=== PATIENT | female | born 1985 | race Caucasian/White ===

== ENCOUNTER 2017-06-23 07:32 | Emergency (ER) | payer MEDICAID ==
[~2017-06-23] VITALS: Ht 157.5 cm; Wt 87.5 kg
[~2017-06-23 07:32] MED LIST: IBUP-1985 PO
[2017-06-23 08:25] LABS: URINE HCG NEGATIVE (NEG)
[2017-06-23 08:26] LABS: CLARITY,URINE Clear (Clear); COLOR,URINE Yellow (Yellow); GLUCOSE, URINE Negative (Neg); KETONES,URINE Negative (Neg); LEUKOCYTE ESTERASE ,URINE Negative (Neg); NITRITES, URINE Negative (Neg); OCCULT BLOOD,URINE Negative (Neg); PROTEIN,URINE Negative (Neg); UROBILINOGEN,URINE 0.2 E.U/dL (0.2-1.0)
[2017-06-23] MEDS ORDERED: LORazepam 1 MG tablet PO ONE (08:35)
[2017-06-23 08:37] LABS: UA COLLECTION TYPE CLN CATCH MIDSTREAM
[2017-06-23 08:56] VITALS: BP 101/62
== END 2017-06-23 08:55 | disposition home or self-care (01) ==
LOC: ER 07:32
DX: R07.9 Chest pain, unspecified (principal); E78.00 Pure hypercholesterolemia, unspecified
CPT/HCPCS: 71045; 81003; 81025; 93005; 99285

== ENCOUNTER 2021-10-09 23:31 | Emergency (ER) | payer MEDICAID ==
[~2021-10-09] VITALS: Ht 157.5 cm; Wt 88.6 kg
[2021-10-10 02:19] LABS: BASOPHILS % (AUTO) 0.5 % (0-1); EOSINOPHILS # (AUTO) 0.1 X10'3 (0-0.9); EOSINOPHILS % (AUTO) 2.6 % (0-6); HEMATOCRIT 41.2 % (35.0-45.0); HEMOGLOBIN 13.9 g/dl (12.0-16.0); LYMPHOCYTES # (AUTO) 2.5 X10'3 (1.1-4.8); LYMPHOCYTES % (AUTO) 43.3 % (21-51); MEAN CORPUSCULAR HEMOGLOBIN 30.5 PG (27.0-31.0); MEAN CORPUSCULAR HGB CONC 33.9 g/dL (33.0-36.5); MEAN PLATELET VOLUME 7.6 FL (7.4-10.4); MONOCYTES # (AUTO) 0.5 X10'3 (0-0.9); NEUTROPHILS # (AUTO) 2.6 X10'3 (1.8-7.7); NEUTROPHILS % (AUTO) 44.6 % (42-75); PLATELET COUNT 226 X10'3 (140-440); RED BLOOD COUNT 4.58 X10'6 (4.20-5.60); RED CELL DISTRIBUTION WIDTH 13.1 % (11.5-14.5); WHITE BLOOD COUNT 5.7 X10'3 (4.5-11.0)
[2021-10-10 02:30] LABS: ALANINE AMINOTRANSFERASE 37 U/L (12-78); ALBUMIN 3.6 G/DL (3.4-5.0); ALBUMIN/GLOBULIN RATIO 1.1 (1.1-1.5); ALKALINE PHOSPHATASE 72 IU/L (46-116); ANION GAP 12 (8-16); ASPARTATE AMINO TRANSFERASE 20 U/L (10-37); BILIRUBIN,TOTAL 0.2 MG/DL (0.1-1.0); BLOOD UREA NITROGEN 15 MG/DL (7-18); BUN/CREATININE RATIO 19.5 (6.6-38.0); CALCIUM 8.7 MG/DL (8.5-10.1); CHLORIDE 108 MMOL/L (99-107); CREATININE 0.77 MG/DL (0.40-0.90); GLUCOSE 112 MG/DL (70-104); POTASSIUM 3.9 MMOL/L (3.5-5.1); SODIUM 143 MMOL/L (135-145); TOTAL CARBON DIOXIDE 23.3 MMOL/L (24-32); TOTAL PROTEIN 6.9 G/DL (6.4-8.2); eGFR 86 ML/MIN
[2021-10-10 02:38] LABS: HCG SERUM QL NEGATIVE
[2021-10-10] MEDS ORDERED: ketorolac trometh inj. 60 MG/2 ML VIAL IM ONE (03:05)
[2021-10-10 03:54] VITALS: BP 140/84
[2021-10-11] MEDS ORDERED: HYDR-3972 PO (07:44)
[2021-10-11] MEDS ORDERED: ORPH100T2 PO (07:44)
== END 2021-10-10 03:54 | disposition home or self-care (01) ==
LOC: ER 23:32
DX: M54.6 Pain in thoracic spine (principal); M79.601 Pain in right arm; M79.10 Myalgia, unspecified site; E78.00 Pure hypercholesterolemia, unspecified; F41.9 Anxiety disorder, unspecified; Z79.899 Other long term (current) drug therapy
CPT/HCPCS: 36415; 73030; 80053; 84703; 85025; 93971; 96372; 99285; J1885; 99283

== ENCOUNTER 2021-10-11 02:12 | Emergency (ER) | payer MEDICAID ==
[~2021-10-11] VITALS: Ht 157.5 cm; Wt 84.1 kg
[2021-10-11 02:26] VITALS: BP 144/99
[2021-10-11] MEDS ORDERED: ORPH100T2 PO (07:44)
[2021-10-11] MEDS ORDERED: HYDR-3972 PO (07:44)
[2021-10-11] MEDS ORDERED: orphenadrine citrate 60mg/2ml inj. IM ONE (08:00)
--- NOTE | 2021-10-11 08:15 | NUR ---
DC INSTRUCTIONS GIVEN TO PATIENT. PATIENT STATES SHE WOULD LIKE A WORK NOTE FOR [address] RODRIGUEZ AND TYIBTasha NOTIFIED OF PATIENT REQUEST FOR WORK NOTE.
== END 2021-10-11 08:18 | disposition home or self-care (01) ==
LOC: ER 02:12
DX: M54.2 Cervicalgia (principal); M79.89 Other specified soft tissue disorders; M62.838 Other muscle spasm; M25.512 Pain in left shoulder
CPT/HCPCS: 96372; 99283; J2360

== ENCOUNTER 2022-01-16 15:03 | Emergency (ER) | payer MEDICAID ==
[~2022-01-16] VITALS: Ht 157.5 cm; Wt 93.2 kg
[~2022-01-16 15:03] MED LIST changes: +ORPH100T2 PO
[2022-01-16 15:18] VITALS: BP 112/77
[2022-01-16 15:50] LABS: CLARITY,URINE CLEAR (Clear); GLUCOSE, URINE NEGATIVE (Neg); KETONES,URINE NEGATIVE (Neg); LEUKOCYTE ESTERASE ,URINE NEGATIVE (Neg); NITRITES, URINE NEGATIVE (Neg); OCCULT BLOOD,URINE NEGATIVE (Neg); PROTEIN,URINE NEGATIVE (Neg); UROBILINOGEN,URINE 0.2 E.U/dL (0.2-1.0)
[2022-01-16 15:53] LABS: COLOR,URINE STRAW (Yellow); UA COLLECTION TYPE CLN CATCH MIDSTREAM
[2022-01-16 15:54] LABS: URINE HCG NEGATIVE (NEG)
[2022-01-16 16:09] LABS: BASOPHILS % (AUTO) 0.2 % (0-1); EOSINOPHILS # (AUTO) 0.1 X10'3 (0-0.9); EOSINOPHILS % (AUTO) 1.4 % (0-6); HEMATOCRIT 41.3 % (35.0-45.0); HEMOGLOBIN 13.9 g/dl (12.0-16.0); LYMPHOCYTES # (AUTO) 2.5 X10'3 (1.1-4.8); LYMPHOCYTES % (AUTO) 31.2 % (21-51); MEAN CORPUSCULAR HEMOGLOBIN 29.8 PG (27.0-31.0); MEAN CORPUSCULAR HGB CONC 33.6 g/dL (33.0-36.5); MEAN CORPUSCULAR VOLUME 88.7 FL (78-98); MEAN PLATELET VOLUME 7.7 FL (7.4-10.4); MONOCYTES # (AUTO) 0.7 X10'3 (0-0.9); MONOCYTES % (AUTO) 8.8 % (2-12); NEUTROPHILS # (AUTO) 4.7 X10'3 (1.8-7.7); NEUTROPHILS % (AUTO) 58.4 % (42-75); PLATELET COUNT 249 X10'3 (140-440); RED BLOOD COUNT 4.66 X10'6 (4.20-5.60); RED CELL DISTRIBUTION WIDTH 13.4 % (11.5-14.5); WHITE BLOOD COUNT 8.1 X10'3 (4.5-11.0)
[2022-01-16 16:22] LABS: ALANINE AMINOTRANSFERASE 45 U/L (12-78); ALBUMIN/GLOBULIN RATIO 1.1 (1.1-1.5); ALKALINE PHOSPHATASE 73 IU/L (46-116); ANION GAP 12 (8-16); ASPARTATE AMINO TRANSFERASE 21 U/L (10-37); BILIRUBIN,TOTAL 0.3 MG/DL (0.1-1.0); BLOOD UREA NITROGEN 14 MG/DL (7-18); CHLORIDE 102 MMOL/L (99-107); CREATININE 0.56 MG/DL (0.40-0.90); GLUCOSE 118 MG/DL (70-104); LIPASE 114 U/L (73-393); POTASSIUM 3.7 MMOL/L (3.5-5.1); SODIUM 137 MMOL/L (135-145); TOTAL CARBON DIOXIDE 23.1 MMOL/L (24-32); TOTAL PROTEIN 7.5 G/DL (6.4-8.2); eGFR > 90 ML/MIN
== END 2022-01-16 21:18 | disposition left against medical advice (07) ==
LOC: ER 15:03
DX: R10.84 Generalized abdominal pain (principal); Z53.21 Procedure and treatment not carried out due to patient leaving prior to being seen by health care provider
CPT/HCPCS: 36415; 80053; 81003; 81025; 83690; 85025

== ENCOUNTER 2022-05-14 05:30 | Day surgery (SDC) | payer MEDICAID ==
[2022-05-11 11:00] LABS: BASOPHILS % (AUTO) 0.2 % (0-1); EOSINOPHILS # (AUTO) 0.1 X10'3 (0-0.9); EOSINOPHILS % (AUTO) 1.8 % (0-6); LYMPHOCYTES # (AUTO) 1.6 X10'3 (1.1-4.8); LYMPHOCYTES % (AUTO) 27.1 % (21-51); MEAN CORPUSCULAR HGB CONC 32.8 g/dL (33.0-36.5); MEAN CORPUSCULAR VOLUME 88.5 FL (78-98); MEAN PLATELET VOLUME 7.5 FL (7.4-10.4); MONOCYTES # (AUTO) 0.4 X10'3 (0-0.9); MONOCYTES % (AUTO) 7.3 % (2-12); NEUTROPHILS # (AUTO) 3.7 X10'3 (1.8-7.7); NEUTROPHILS % (AUTO) 63.6 % (42-75); PRE OP HEMATOCRIT 28.6 % (35.0-45.0); PRE OP PLATELET COUNT 226 X10'3 (140-440); RED BLOOD COUNT 3.23 X10'6 (4.20-5.60); RED CELL DISTRIBUTION WIDTH 13.1 % (11.5-14.5)
[2022-05-11 11:07] LABS: ALBUMIN 4.3 G/DL (3.4-5.0); ALBUMIN/GLOBULIN RATIO 1.4 (1.1-1.5); ALKALINE PHOSPHATASE 79 IU/L (46-116); BLOOD UREA NITROGEN 15 MG/DL (7-18); BUN/CREATININE RATIO 18.8 (6.6-38.0); CALCIUM 8.4 MG/DL (8.5-10.1); CHLORIDE 102 MMOL/L (99-107); PRE OP ALT 78 U/L (30-65); PRE OP ANION GAP 12 (8-16); PRE OP AST 28 U/L (10-37); PRE OP BILIRUB, TOTAL 0.4 MG/DL (0.0-1.0); PRE OP GLUCOSE 110 MG/DL (70-104); PRE OP SODIUM 138 MMOL/L (135-145); TOTAL CARBON DIOXIDE 24.5 MMOL/L (24-32); TOTAL PROTEIN 7.4 G/DL (6.4-8.2); eGFR 82 ML/MIN
[2022-05-11 11:08] LABS: PRE OP HEMOGLOBIN 9.4 g/dL (12.0-16.0)
[2022-05-11 11:39] LABS: HCG SERUM QL NEGATIVE
[2022-05-14] VITALS (9 sets, daily range): BP systolic 100–128; BP diastolic 58–89
[~2022-05-14] VITALS: Ht 157.5 cm; Wt 92.4 kg
[~2022-05-14 05:30] MED LIST changes: -IBUP-1985 PO; +LINE600T14 PO; -ORPH100T2 PO; +ceFAZolin inj. 2,000 MG in dextrose 5%-water 100 ML IV ONE; +famotidine 20mg tablet PO ONE; +ringers solution, lacted 1,000 ML IV SCH
[2022-05-14] MEDS ORDERED: BUPIVAcaine 0.25% w/Epi /PF 30ml vial ONE (06:49)
[2022-05-14] MEDS ORDERED: famotidine 20mg tablet PO ONE (06:55)
[2022-05-14] MEDS ORDERED: sevoflurane 250ml liquid IH ONE (07:22)
[2022-05-14] MEDS ORDERED: hydrALAZINE 20mg/ml inj. IV PRN (07:25)
[2022-05-14] MEDS ORDERED: acetaminophen 1,000mg/100ml IV 100 ML IV PRN (07:25)
[2022-05-14] MEDS ORDERED: ondansetron/PF 4mg/2ml inj IV PRN (07:25)
[2022-05-14] MEDS ORDERED: labetalol 20mg/4ml (5mg/ml) syringe IV PRN (07:25)
[2022-05-14] MEDS ORDERED: morphine 2 MG/ML inj. syringe IV PRN (07:25)
[2022-05-14] MEDS ORDERED: meperidine/PF 25mg/ml syringe IV PRN ×3 (07:25)
[2022-05-14] MEDS ORDERED: ketorolac trometh. 30mg/ml inj. IV ONE (07:25)
[2022-05-14] MEDS ORDERED: morphine 4 MG/ML inj SYRINge IV PRN (07:25)
[2022-05-14] MEDS ORDERED: ringers solution, lacted 1,000 ML IV SCH (07:25)
[2022-05-14] MEDS ORDERED: FENTANYL CITRATE/PF 50 MCG/1 ML VIAL ONE (07:29)
[2022-05-14] MEDS ORDERED: midazolam 1 mg/ML 2ml injection ONE (07:30)
[2022-05-14] MEDS ORDERED: dexamethasone sod phosphate 4mg/ml inj. ONE (07:49)
[2022-05-14] MEDS ORDERED: LIDOcaine 2% (20mg/ml) 5ml vial ONE (07:49)
[2022-05-14] MEDS ORDERED: propofol inj 20 ML IV ONE (07:49)
[2022-05-14] MEDS ORDERED: ondansetron/PF 4mg/2ml inj ONE (07:49)
[2022-05-14] MEDS ORDERED: rocuronium 10mg/ml inj IV ONE (07:49)
[2022-05-14] MEDS ORDERED: ePHEDrine 50MG/ML INJ. ONE (07:50)
[2022-05-14] MEDS ORDERED: BUPIVAcaine HCl 0.25%/EPInephrine 1:200,000 inj. 10 ML VIAL IM ONE (08:08)
[2022-05-14] MEDS ORDERED: neostigmine methylsulfate 1 MG/ML 10ml vial ONE (08:16)
[2022-05-14] MEDS ORDERED: glycopyrrolate 0.2mg/ml inj ONE (08:16)
--- NOTE | 2022-05-14 08:38 | NUR ---
Received from OR via , accompanied by Anesthesiologist DR BEAN and report given by Anesthesiologist AND SALESPERSON [employer]. PT DROWSY, DENIES PAIN, UMBILICAL LAP SITE W/BANDAID CDI, LINDY PAD IN PLACE, CDI. Addendum: 05/14/22 at 0855 by Deborah Cheatham RN Amended: Links added.
[2022-05-14] MEDS: proCHLORperazine 10 MG/2 ml inj IV PRN ×2 (09:02→09:04)
--- NOTE | 2022-05-14 09:48 | NUR ---
PT NAUSEA RESOLVED, PT UP AND ABLE TO AMBULATE SLOWLY, D/C INSTRUCTIONS GIVEN AND GONE OVER W/PT WHO VERBALIZED UNDERSTANDING. PT D/CD TO HOME VIA W/C TO PRIVATE VEHICLE W/O INCIDENT. Addendum: 05/14/22 at 1025 by Deborah Cheatham RN Amended: Links added.
== END 2022-05-14 09:48 | disposition home or self-care (01) ==
LOC: PAS 05:30
PROVIDERS: ATTEND Obstetrics & Gynecology
DX: Z30.2 Encounter for sterilization (principal); N92.0 Excessive and frequent menstruation with regular cycle; N80.101 Endometriosis of right ovary, unspecified depth; Z72.89 Other problems related to lifestyle; F12.90 Cannabis use, unspecified, uncomplicated; Z87.891 Personal history of nicotine dependence; E66.9 Obesity, unspecified; Z68.37 Body mass index [BMI] 37.0-37.9, adult; Z91.041 Radiographic dye allergy status; Z79.899 Other long term (current) drug therapy
CPT/HCPCS: 36415; 58563; 58662; 58670; 80053; 82948; 84703; 85025; J0131; J0690; J0780; J1100; J2175; J2250; J2405; J2704; J2710; J3010; J3490; J7060; J7120; S0020; Z7506; Z7508; Z7512; A4618; A4649; A7000

== ENCOUNTER 2022-08-05 17:07 | Outpatient (CLI) | payer MEDICAID | END 2022-08-05 23:59 | disposition home or self-care (01) | LOC: LAB SPEC 17:07 | PROVIDERS: ATTEND Surgery | DX: N61.0 Mastitis without abscess (principal) | CPT/HCPCS: 87070 ==